=== PATIENT | female | born 1990 | race Caucasian/White ===

== ENCOUNTER 2017-06-23 05:58 | Emergency (ER) | payer SELFPAY ==
[~2017-06-23] VITALS: Ht 152.4 cm; Wt 60.3 kg
[2017-06-23 07:00] VITALS: BP 134/71
== END 2017-06-23 07:00 | disposition home or self-care (01) ==
LOC: ED 05:58
DX: K08.89 Other specified disorders of teeth and supporting structures (principal); E07.9 Disorder of thyroid, unspecified